=== PATIENT | female | born 2005 | race Caucasian/White ===

== ENCOUNTER 2023-08-20 10:56 | Outpatient (CLI) | payer BC, SELFPAY ==
[2023-08-20 11:15] LABS: Basophils # 0.1 K/mm3 (0-0.2); Basophils % 1.2 % (0.1-2.0); Eosinophils # 0.2 K/mm3 (0.0-0.4); Eosinophils % 2.9 % (0.1-12.0); Hematocrit 43.1 % (37.0-47.0); Lymphocytes # 2.2 K/mm3 (0.7-4.5); Lymphocytes % 27.9 % (10-50); Mean Corpuscular HGB Conc 32.5 g/dL (31.8-35.4); Mean Corpuscular Hemoglobin 30.8 pg (27.0-31.2); Mean Platelet Volume 8.1 fl (7.4-10.4); Monocytes # 0.4 K/mm3 (0.1-1.0); Monocytes % 4.8 % (1.7-9.3); Neutrophils % 63.2 % (37.0-80.0); Platelet Count 346 K/mm3 (142-424); Red Blood Count 4.54 M/mm3 (4.20-5.40); Red Cell Distribution Width 12.7 % (11.5-17.5)
[2023-08-20 11:57] LABS: Alanine Aminotransferase 60 U/L (12-78); Albumin Level 4.4 g/dl (3.5-5.0); Alkaline Phosphatase 53 U/L (38-126); Anion Gap 14.3 mEq/L (5-15); Aspartate Amino Transferase 45 U/L (14-36); Bilirubin,Direct 0.1 mg/dl (0.0-0.4); Bilirubin,Indirect 0.3 mg/dL (0.0-0.9); Bilirubin,Total 0.4 mg/dl (0.2-1.3); Bilirubin,Unconjugated 0.3 mg/dL (0.0-1.1); Blood Urea Nitrogen 11 mg/dl (7-17); Calcium 9.2 mg/dl (8.4-10.2); Carbon Dioxide 22 mmol/L (22.0-30.0); Chloride 105 mmol/L (98-107); Chol/HDL Ratio 3.9 (1-3.5); Cholesterol 129 mg/dl (140-200); Estimated Glomerular Filt Rate 157 ml/min (>60); GFR (African American) 190 ML/MIN (>60); Glucose 91 mg/dl (74-100); HDL Cholesterol 33 mg/dl (40-60); Potassium 4.3 mmoL/L (3.5-5.1); Sodium 137 mmol/L (136-145); Total Protein,Serum 7.3 g/dl (6.3-8.2); Triglycerides 104 mg/dl (30-150); VLDL Cholesterol 21 mg/dL (0-40)
[2023-08-20 12:08] LABS: Direct LDL Cholesterol 72.31 mg/dL (100-129)
[2023-08-20 12:13] LABS: Free T4 (Free Thyroxine) 0.97 ng/dl (0.78-2.19)
[2023-08-20 12:28] LABS: Thyroid Stimulating Hormone 1.35 uIU/mL (0.465-4.68)
== END 2023-08-20 23:59 ==
LOC: LAB 10:59
PROVIDERS: PCP Family Medicine; Visit Provider Nurse Practitioner
DX: R07.9 Chest pain, unspecified (principal); R06.09 Other forms of dyspnea; R55 Syncope and collapse; I11.9 Hypertensive heart disease without heart failure; K21.9 Gastro-esophageal reflux disease without esophagitis; R94.31 Abnormal electrocardiogram [ECG] [EKG]
CPT/HCPCS: 36415; 80048; 80061; 80076; 84439; 84443; 85025; 93270

== ENCOUNTER 2023-09-22 08:24 | Outpatient (CLI) | payer BC, SELFPAY ==
--- NOTE | 2023-09-22 08:25 | CA_ITS ---
APPROVED REPORT Exam: Pharmacologic Technologist: Amy Carlos, Ht: 5 ft 6 in Wt: 135 lbs BSA: 1.69 m2 HR: 70 bpm BP: 137/73 mmHg Rhythm: SR Medical History Medications: Meclizine,,,,, ONdansetron,,,,, Sertaline,,,,, Microgestin,,,,, Stress Test Details Test: Michelle HR Resting HR: 94 bpm Max Heart Rate (APMHR): 200 bpm Max HR Achieved: 181 bpm Target HR (85% APMHR): 170 bpm % of APMHR: 91 Recovery HR: 121 bpm HR response to stress: Normal HR response to stress BP Resting BP: 128.0/89 mmHg Max BP: 156/88 mmHg Recovery BP: 137.0/89.0 mmHg BP response to stress: Normal blood pressure response to stress. ECG Resting ECG: SR Stress ECG: < 0.[address] depression Arrhythmia: Nonoe Recovery ECG: Return to baseline within 3 minutes of recovery Recovery Arrhythmia: None Clinical Exercise duration: 11:51 min Highest Stage Achieved: Exercise capacity: 12.8 METs Overall Exercise Capacity for Age: Average Stress ECG Conclusion During michelle protocol pt experinced chest tightness and fatigie. No arrhythmias noted. <0.[address] depression Conclusion: Average exercise capacity. Normal EKG reponse to exercise. GXT only. Test Summary REST . . . . . . . Sitting REST . . . . . . . Standing REST 02:29 0.0 0.0 94 . 128/ 89 . . Stage 1 01:00 10.0 1.7 98 . . . . Stage 1 02:00 10.0 1.7 107 . . . . Stage 1 03:00 10.0 1.7 108 . 119/ 78 . . Stage 2 01:00 12.0 2.5 114 . . . . Stage 2 02:00 12.0 2.5 120 . . . . Stage 2 03:00 12.0 2.5 120 . 128/ 80 . . Stage 3 01:00 14.0 3.4 132 . . . . Stage 3 02:00 14.0 3.4 142 . . . . Stage 3 03:00 14.0 3.4 144 . 130/ 85 . . Stage 4 01:00 16.0 4.2 165 . . . . Stage 4 02:00 16.0 4.2 175 . . . . Stage 4 02:51 16.0 4.2 181 . . . Stop exercise at 11:51 RECOVERY 01:00 0.0 0.0 152 . . . . RECOVERY 02:00 0.0 0.0 130 . 137/ 89 . . RECOVERY 03:00 0.0 0.0 120 . 137/ 89 . . RECOVERY 04:00 0.0 0.0 115 . 156/ 88 . . RECOVERY 05:00 0.0 0.0 111 . 147/ 85 . . RECOVERY 06:00 0.0 0.0 108 . 141/ 82 . . RECOVERY 06:40 0.0 0.0 104 . 133/ 89 . . Electronically signed by : Shauna Rodriguez MD 10/01/2023 13:53:19
== END 2023-09-22 23:59 | disposition home or self-care (01) ==
LOC: RT 08:25
PROVIDERS: PCP Family Medicine; Visit Provider Obstetrics & Gynecology Gynecologic Oncology
DX: R07.89 Other chest pain (principal); R55 Syncope and collapse; R94.31 Abnormal electrocardiogram [ECG] [EKG]
CPT/HCPCS: 93017; 93018

== ENCOUNTER 2023-10-29 12:18 | Outpatient (CLI) | payer BC, SELFPAY ==
--- NOTE | 2023-10-29 12:25 | CA_ITS ---
APPROVED REPORT EXAM: Comprehensive 2D, Doppler, and color-flow Echocardiogram Photocopying Machine Operator: Jyoti Padilla RDCS Ht: 5 ft 6 in Wt: 130lbs BSA: 1.67 BP: 119/79 mmHg Indications: SYNCOPE,ABN EKG,SVT M-Mode Dimensions RVDd 2.36 cm (0.9-2.6) LA Diam 3.04 cm (1.9-4.0) LVDd 5.02 cm (3.5-5.7) LVDs 2.90 cm (3.5-5.7) IVSd 0.40 cm (0.6-1.1) PWd 0.48 cm (0.6-1.1) EF (Teich) 73.00% EPSs 2.28 cm FS 42.20% EDV (Teich) 119.30 mL ESV (Teich) 32.20 mL LV Diastology E Decel Time 263 (160-240 msec) E/A Ratio 1.5 Mitral Valve MV E Max Nithin. 79.0 (40-130 cm/s) MV A Velocity 54.0 (40-130 cm/s) E/A Ratio 1.47 MV PHT 77.0 ms Left Ventricle The left ventricle is normal size. The left ventricular systolic function is normal. The left ventricular ejection fraction is within the normal range. There is normal left ventricular wall thickness. There is normal LV segmental wall motion. The left ventricular diastolic function is normal. LVEF is 55%. Right Ventricle The right ventricle is normal size. The right ventricular systolic function is normal. Atria The left atrium size is normal. The right atrium size is normal. There is no Doppler evidence of interatrial shunt. Aortic Valve The aortic valve opens well. There is no aortic valvular stenosis. No aortic regurgitation is present. Mitral Valve The mitral valve is normal in structure. No evidence of mitral valve stenosis. There is no mitral valve regurgitation noted. Tricuspid Valve The tricuspid valve leaflets are thin and pliable. Trace tricuspid regurgitation. There is insufficient TR jet to estimate RVSP. Pulmonic Valve The pulmonary valve is normal in structure. Trace pulmonic regurgitation. Great Vessels The aortic root is normal in size. The ascending aorta is normal in size. IVC is normal in size and collapses >50% with inspiration. Pericardium There is no pericardial effusion. Other Information Study Quality: Adequate Conclusion Normal biventricular systolic function. No significant valvular stenosis or regurgitation. Electronically signed by : Shauna Rodriguez MD 10/31/2023 23:23:26
== END 2023-10-29 23:59 | disposition home or self-care (01) ==
LOC: RT 12:21
PROVIDERS: PCP Family Medicine; Visit Provider Nurse Practitioner
DX: R06.02 Shortness of breath (principal); R07.89 Other chest pain; R55 Syncope and collapse; R94.31 Abnormal electrocardiogram [ECG] [EKG]
CPT/HCPCS: 93306